=== PATIENT | male | born 1990 | race Caucasian/White ===

== ENCOUNTER 2017-03-04 16:15 | Emergency (ER) | payer SELFPAY ==
--- NOTE | ~2017-03-04 | ER ---
PATIENT'S NAME: KATE GUNN [facility] AGE: 26 Y [address] ROOM: [place] [id number] LOCATION: [facility] ADMIT DATE: 03/04/2017 ER/Outpatient Report DISCHARGE DATE: 03/04/2017 FAMILY PHYSICIAN: PHYSICIAN, NO ATTENDING PHYSICIAN: Álvaro Watson HISTORY OF PRESENT ILLNESS: This patient is a 26-year-old male, who comes in with left testicular pain over the past 30 days. No urinary frequency, urgency, or dysuria. No fever, chills, sweats, cough, cold, or flus. The patient initially saw Dr. Watson. See Dr. Watson's dictation in regard to the chief complaint, history of the present illness, past medical history, physical exam. Dr. Watson transferred the patient's care over to me at shift change. Dr. Watson asked me to follow up with the patient's laboratory study results, ultrasound study results, final diagnosis, and treatment plan. LABORATORY DATA: urinalysis was clear. Urine Trichomonas and Gonorrhea were both negative. Ultrasound of the left testicle was normal. Ultrasound was read by Radiology, see dictated transcribed report. IMPRESSION: Left testicular pain, etiology uncertain. PLAN: The patient was discharged from the emergency room. Observation. Activity as tolerated. Fluids, diet as tolerated. Warm-to-hot sitz baths intermittently as needed. Continue present home medications and care. Tramadol 50 mg 1 every 6 hours as needed for pain, #30 with 1 refill. Get scheduled for Urology consultative exam. Follow up with personal physician as needed. Discussion ensued with the patient concerning my findings and recommendations, he understands. MD CHRISTIANNE WHYTE/danni /[id number] d: t: 03/05/17 0035, OUTPATIENT REPORT
--- NOTE | ~2017-03-04 | ER ---
PATIENT'S NAME: KATE SWANSON [facility] AGE: 26 Y [address] ROOM: [place] [address] LOCATION: ED ADMIT DATE: 03/04/2017 ER/Outpatient Report DISCHARGE DATE: 03/04/2017 FAMILY PHYSICIAN: PHYSICIAN, NO ATTENDING PHYSICIAN: Álvaro Chávez CHIEF COMPLAINT: Left testicle pain. HISTORY OF PRESENT ILLNESS: Mr. Swanson is at 30 days of left testicle pain. The pain is similar to when he had testicular cancer before. He states that there was a mass in his left testicle, but was told it was normal. The pain does not radiate anywhere except slightly up into his abdomen. The pain is aching in nature. The pain is at the point where he just cannot take it anymore. He tried to get a hold of the cancer team and they recommended emergency evaluation or primary care evaluation. He is otherwise without symptoms. No particular positioning makes it better. Denies any penile discharge. No history of STIs. PAST MEDICAL HISTORY: Documented on the record and reviewed by me. SOCIAL HISTORY: Documented on the record and reviewed by me. MEDICATIONS: Documented on the record and reviewed by me. ALLERGIES: DOCUMENTED ON THE RECORD AND REVIEWED BY ME. REVIEW OF SYSTEMS: All systems reviewed and negative except as noted in the HPI. PHYSICAL EXAMINATION: VITAL SIGNS: Blood pressure 139/75, pulse 109, respiratory rate is 20, temperature 97.8, SpO2 is 100% on room air. Pain is rated at 8/10. GENERAL: Age-appropriate male, sitting on the exam table, no apparent pain or distress, comfortable appearance. NEUROLOGIC: Awake and alert. GCS 15. No focal deficits. No asymmetry. HEENT: Normocephalic, atraumatic. Eyes are PERRL. Oropharynx is clear. NECK: Supple. Trachea is midline CHEST/HEART: Regular rate and rhythm with no murmurs. On my exam, heart rate is approximately 90. LUNGS: Clear to auscultation bilateral grossly. ABDOMEN: Benign. PATIENT'S NAME: KATE SWANSON [facility] AGE: 26 Y [address] ROOM: [place] [address] LOCATION: [facility] ADMIT DATE: 03/04/2017 ER/Outpatient Report DISCHARGE DATE: 03/04/2017 FAMILY PHYSICIAN: PHYSICIAN, NO ATTENDING PHYSICIAN: Álvaro Chávez : Normal male genitalia. Right hemiscrotum is without testicle. Left hemiscrotum is notable for tenderness at the epididymis. No testicular masses appreciated, some tenderness of the cord. No penile discharge. No masses, no inguinal hernias appreciated. EXTREMITIES: Warm, well formed, well perfused. No obvious deformities or edema. SKIN: Clean, dry, and intact. IMAGING DATA: Ultrasound of the testicle is pending. LAB DATA: Urinalysis and gonorrhea and chlamydia are pending. IMPRESSION: Left testicle pain. EMERGENCY DEPARTMENT COURSE: The patient was seen and evaluated at bedside. There was delay as multiple other patients require disposition. The patient was found to be hemodynamically stable on my exam. His exam is concerning for possible epididymitis and his history is concerning for possible tumor. We will obtain the ultrasound. As he was not sure of his current right situation, I did not administer any medication. Transition to Dr. Jorge was given at 1800 hours. I saw this patient at approximately 1750 hours. All questions were answered to the best of my ability for Dr. Jorge and the patient at that time. Please see Dr. Jorge's dictation for completion of the ER encounter. ÁLVARO CHÁVEZ MD [facility]/modl /[id number] d: t: 03/05/17 0037, OUTPATIENT REPORT
[~2017-03-04 16:15] MED LIST: ADVAIR 250-501 EACH INH; ADVIL200 MG; ADVIL200 MG PO; ATARAX10 MG; ATARAX25 MG PO; CIPRO250 MG PO; CIPRO500 MG PO; COLACE100 MG PO; CREON 121 CAP; CREON DR 24,001 EACH PO; DULCOLAX10 MG R; EFFEXOR XR75 MG PO; EFFEXOR75 MG; GABAPENTIN300 MG PO; HUMALOG MI100 UNIT/5; HUMALOG100 UNIT/1 SUB-Q; KLONOPIN1 MG PO; MILK OF MA400 MG/5 M PO; MIRALAX17 GM PO; NEURONTIN100 MG; NEURONTIN300 MG PO; NEXIUM40 MG; NEXIUM40 MG PO; PERCOCET 5-3251 EACH; PROVENTIL OR V6.7 GM; PROVENTIL OR V6.7 GM PO; PULMOZYME1 AMP INH; ROXICODONE 5MG (5 MG PO; SENOKOT S (S1 TABLET PO; VALIUM5 MG PO; ZITHROMAX250 MG PO; [UNRECOGNIZED DRUG - OTHER]
[2017-03-04 18:02] LABS: BILIRUBIN URINE NEGATIVE (NEGATIVE); BLOOD URINE NEGATIVE /UL (NEGATIVE); COLOR URINE YELLOW (YELLOW); GLUCOSE URINE NEGATIVE (NEGATIVE); KETONE URINE NEGATIVE (NEGATIVE); LEUKOCYTES URINE NEGATIVE /UL (NEGATIVE); NITRITE URINE NEGATIVE (NEGATIVE); PROTEIN URINE NEGATIVE (NEGATIVE); SPEC GRAVITY URINE 1.005 (1.003-1.035); TURBIDITY URINE CLEAR (CLEAR); UROBILINOGEN URINE NORMAL (NORMAL)
== END 2017-03-04 20:07 | disposition disaster alternative care site (69) ==
LOC: GMED 16:15
PROVIDERS: Emergency Medicine
DX: N50.812 Left testicular pain (principal); Z79.2 Long term (current) use of antibiotics; Z98.890 Other specified postprocedural states; Z79.899 Other long term (current) drug therapy; Z85.47 Personal history of malignant neoplasm of testis